=== PATIENT | male | born 1990 | race Caucasian/White ===

== ENCOUNTER 2017-02-05 13:51 | Emergency (ER) | payer SELFPAY ==
[~2017-02-05] VITALS: Ht 185.4 cm; Wt 97.7 kg
[2017-02-05 13:57] VITALS: Ht 185.4 cm; Wt 97.7 kg
--- NOTE | 2017-02-05 16:13 | RADRPT ---
PROCEDURE: XR Knee. CLINICAL INDICATION: Pain TECHNIQUE: AP, lateral and oblique view of the right knee were obtained. The images reviewed on a PACS workstation. COMPARISON: None. FINDINGS: Three views of the right knee demonstrate no displaced fracture. No gross malalignment is seen. Th ere is no significant degenerate change. No patellofemoral disease is identified. No knee joint effu shar is seen.. The bones normally mineralized. The soft tissues are unremarkable. IMPRESSION: No acute fracture dislocation RPTAT: HH .Beny Patricia MD, MD Date Time Electronically viewed and signed by .Beny Patricia MD, on 02/05/2017 16:13 .W/
--- NOTE | 2017-02-05 17:20 | RADRPT ---
PROCEDURE: XR Elbow. CLINICAL INDICATION: Post-traumatic swelling TECHNIQUE: Three views of the right elbow are available for review COMPARISON: None available FINDINGS: There is no acute osseous or articular abnormality. No evidence for fracture. The radiocapitellar and ulnohumeral articular surfaces are preserved. No evidence for joint effusion or soft tissue ca lcifications. There is marked soft tissue swelling over the olecranon, likely presenting olecranon bursitis. Enthesopathic changes seen at the Achilles insertion IMPRESSION: 1. No acute osseous abnormality. 2. Marked soft tissue swelling of the olecranon, query bursitis. RPTAT: UU .Rupert Hickman MD, Date Time Electronically viewed and signed by .Rupert Hickman MD, MD on 02/05/2017 17:20 .d/
[2017-02-05] MEDS ORDERED: NAPR-688 PO (18:27)
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
[2017-02-05 18:50] VITALS: BP 125/78; PULSE 70; RESP 17
== END 2017-02-05 18:50 | disposition home or self-care (01) ==
LOC: E/R 13:51
DX: S80.01XA Contusion of right knee, initial encounter (principal); S50.01XA Contusion of right elbow, initial encounter; X58.XXXA Exposure to other specified factors, initial encounter; Y92.512 Supermarket, store or market as the place of occurrence of the external cause
CPT/HCPCS: 73562

== ENCOUNTER 2017-02-18 10:45 | Emergency (ER) | payer SELFPAY ==
[~2017-02-18] VITALS: Ht 193 cm; Wt 110.0 kg
[~2017-02-18 10:45] MED LIST: NAPR-688 PO
[2017-02-18 10:53] VITALS: Ht 193 cm; Wt 110.0 kg
[2017-02-18] MEDS ORDERED: IBUPROFEN 800 MG TAB PO ONE (11:00)
[2017-02-18] MEDS ORDERED: HYDROCODONE/APAP (5/325) TAB PO ONE (11:00)
[2017-02-18] MEDS ORDERED: KETOROLAC 30 MG INJ IV STA (12:22)
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
[2017-02-18] MEDS ORDERED: IBUP800T25 PO (12:33)
[2017-02-18] MEDS ORDERED: HYDR-906 PO (12:33)
[2017-02-18 13:06] VITALS: BP 132/82; PULSE 78; RESP 18; TEMP 98.3
--- NOTE | 2017-02-18 15:31 | RADRPT ---
PROCEDURE: Right knee radiographs. CLINICAL INDICATION: Right knee pain. TECHNIQUE: Three views. Weight bearing. Frontal, lateral, and patellar view. COMPARISON: 02/05/2017. FINDINGS: There is no fracture or dislocation. There is a small joint effusion. The articular surfaces are intact. There is no lytic or blastic lesion. There is no radiopaque foreign body. IMPRESSION: 1. Small joint effusion. 2. Otherwise unremarkable images of the right knee. 3. No other change from 02/05/2017. RPTAT: QQ .Juna Lyles MD, MD Date Time Electronically viewed and signed by .Juan Lyles MD, MD on 02/18/2017 15:30 .R/
== END 2017-02-18 13:06 | disposition home or self-care (01) ==
LOC: E/R 10:45
DX: S83.91XA Sprain of unspecified site of right knee, initial encounter (principal); W18.39XA Other fall on same level, initial encounter; Y92.9 Unspecified place or not applicable
CPT/HCPCS: 73562; 96374; 99284; J1885

== ENCOUNTER 2017-03-25 16:51 | Emergency (ER) | payer SELFPAY ==
[~2017-03-25] VITALS: Ht 193 cm; Wt 116.0 kg
[~2017-03-25 16:51] MED LIST changes: +HYDR-906 PO; +IBUP800T25 PO
[2017-03-25 16:53] VITALS: Ht 193 cm; Wt 116.0 kg
[2017-03-25] MEDS ORDERED: HYDROCODONE/APAP (5/325) TAB PO ONE (18:30)
--- NOTE | 2017-03-25 19:39 | RADRPT ---
PROCEDURE: XR Tibia and Fibula. CLINICAL INDICATION: Right lower leg pain and swelling. Right upper anterior tibia pain. TECHNIQUE: 4 views of the right tibia and fibula are available for review. COMPARISON: None available FINDINGS: The right tibia and fibula are intact. No acute fracture or dislocation is seen. No radiopaque for eign body is identified. The soft tissues are unremarkable. The upper anterior tibia is intact. IMPRESSION: 1. Unremarkable right tibia and fibula x-ray series. RPTAT: PP .Oc Koehler MD, MD Date Time Electronically viewed and signed by .Oc Koehler MD, on 03/25/2017 19:39 .B/
--- NOTE | 2017-03-25 19:44 | RADRPT ---
PROCEDURE: XR Knee. CLINICAL INDICATION: Right knee pain. TECHNIQUE: 3 views of the right knee are available for review. COMPARISON: Right knee x-ray 02/18/2017 FINDINGS: The osseous structures, articular spaces, and surrounding soft tissues of the right knee are all unr emarkable. No acute fracture or dislocation is seen. No radiopaque foreign body is identified. Al ignment is anatomic. IMPRESSION: 1. Unremarkable right knee x-ray series. 2. No acute fracture or dislocation is seen. 3. Stable appearances compared to the prior study. RPTAT: PP .Oc Koehler MD, Date Time Electronically viewed and signed by .Oc Koehler MD, on 03/25/2017 19:43 .B/
[2017-03-25] MEDS ORDERED: IBUP-1542 PO (20:40)
--- NOTE | 2017-03-26 00:27 | ERD ---
ER Documentation Chief Complaint Chief Complaint RIGHT KNEE PAIN/INJURY HPI 46-year-old female patient with no significant past medical history presents to the ED complaining of right knee pain and injury that occurred earlier today at work at [employer]. 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 Reports that he has had chronic knee pain for the past year. Describes pain as sharp and rates it a 11 out of 10. It is that he took ibuprofen without relief. Denies any loss of sensation, loss of range of motion, fever, chills, redness or swelling. Denies fall, head or neck injuries. Denies any seizures or loss of consciousness. ROS All systems reviewed and are negative except as per history of present illness. Medications Home Meds Active Scripts Ibuprofen* (Motrin*) 600 Mg Tab, 600 MG PO Q6, #30 TAB Prov:SHAKA HIDALGO PA-C 03/25/17 Hydrocodone/Acetaminophen ([place] 5-325 Tablet) 1 Each Tablet, 1 TAB PO Q8 Y for PAIN, #10 TAB Prov:THOMAS PATEL DO 02/18/17 Ibuprofen* (Motrin*) 800 Mg Tab, 800 MG PO Q6H Y for PAIN AND OR ELEVATED TEMP, #30 TAB Prov:THOMAS PATEL DO 02/18/17 Naproxen* (Naproxen*) 500 Mg Tablet, 500 MG PO BID Y for PAIN, #20 TAB Prov:ROSHAN SANDRA DO 02/05/17 Allergies Allergies: Coded Allergies: No Known Allergy (Unverified , 02/05/17) PMhx/Soc Medical and Surgical Hx: pt denies Medical Hx, pt denies Surgical Hx Hx Alcohol Use: Yes Hx Substance Use: No Hx Tobacco Use: No Smoking Status: Never smoker Physical Exam Vitals Vital Signs Date Time Temp Pulse Resp B/P Pulse Ox O2 Delivery O2 Flow Rate FiO2 03/25/17 16:53 98.1 81 18 142/83 99 Physical Exam Const: [id number], well-nourished. In no acute distress. Head: Atraumatic, normocephalic Eyes: Normal Conjunctiva without injection ENT: Normal external ear, nose and mouth. Neck: Full range of motion. No meningismus. Resp: Clear to auscultation bilaterally. No wheezing, rhonchi, rales, or crackles. No accessory muscle use. No retractions. Cardio: Regular rate and rhythm, no murmurs Skin: No petechiae or rashes Back: No midline tenderness. No CVA tenderness. Ext: No cyanosis, or edema. Cap refill less than 2 seconds. Distal pulses intact bilaterally. Tender to palpation of the right patellar region. No erythema or edema. Limited range of motion due to pain. No warmth to touch. Neur: Awake and alert. Normal coordination. Limping gait due to pain. Muscle strength 5/5. Sensation intact bilaterally. Psych: Normal Mood and Affect Results 24 hrs Current Medications Medications (Trade) Dose Ordered Sig/Zak Route PRN Reason Start Time Stop Time Status Last Admin Dose Admin Acetaminophen/ Hydrocodone Bitart ([place] (5/325)) 1 tab ONCE ONCE PO 03/25/17 18:30 03/25/17 18:31 DC 03/25/17 18:37 Procedures/MDM 26-year-old male patient with no significant past medical history presents the ED complaining of right knee injury that occurred at work. Patient is afebrile nontoxic appearing. Patient has normal vital signs. A right knee, tib-fib x- ray was ordered to further evaluate patient. ROCEDURE: XR Knee. CLINICAL INDICATION: Right knee pain. TECHNIQUE: 3 views of the right knee are available for review. COMPARISON: Right knee x-ray 02/18/2017 FINDINGS: The osseous structures, articular spaces, and surrounding soft tissues of the right knee are all unremarkable. No acute fracture or dislocation is seen. No radiopaque foreign body is identified. Alignment is anatomic. IMPRESSION: 1. Unremarkable right knee x-ray series. 2. No acute fracture or dislocation is seen. 3. Stable appearances compared to the prior study. PROCEDURE: XR Tibia and Fibula. CLINICAL INDICATION: Right lower leg pain and swelling. Right upper anterior tibia pain. TECHNIQUE: 4 views of the right tibia and fibula are available for review. COMPARISON: None available FINDINGS: The right tibia and fibula are intact. No acute fracture or dislocation is seen. No radiopaque foreign body is identified. The soft tissues are unremarkable. The upper anterior tibia is intact. IMPRESSION: 1. Unremarkable right tibia and fibula x-ray series. Patient is placed in a right knee immobilizer. Crutches was ordered to further evaluate patient. Splint Assessment: Neurovascularly intact pre and post splint placement with good fit. Patient's extremity symptoms have stabilized while they have been evaluated in the department and are appropriate for outpatient follow up. No evidence of fractures, dislocations, compartment syndrome, neurologic injury, vascular injury, open joint, open fracture, tendon laceration, septic arthritis, osteomyelitis, DVT, foreign body, or other emergent conditions. Discharge medications: Ibuprofen Follow up with primary care physician in 1-2 days for a referral to see an orthopedic physician for further evaluation and treatment. Instructed patient to return to the ED sooner for any worsening symptoms. Patient's questions were answered. Patient understood and agreed with discharge plan. Patient discharged stable. Departure Diagnosis: Primary Impression: Knee injury Encounter type: initial encounter Laterality: right Qualified Code: S89.91XA - Injury of right knee, initial encounter Condition: Stable Patient Instructions: Reducing Knee Pain and Swelling, Knee Pain, Meniscus Injury (Possible), Knee Pain, Uncertain Cause Referrals: NO PRIMARY,CARE PHYSICIAN (PCP) COMMUNITY CLINICS YOU HAVE RECEIVED A MEDICAL SCREENING EXAM AND THE RESULTS INDICATE THAT YOU DO NOT HAVE A CONDITION THAT REQUIRES URGENT TREATMENT IN THE EMERGENCY DEPARTMENT. FURTHER EVALUATION AND TREATMENT OF YOUR CONDITION CAN WAIT UNTIL YOU ARE SEEN IN YOUR DOCTORS OFFICE WITHIN THE NEXT 1-2 DAYS. IT IS YOUR RESPONSIBILITY TO MAKE AN APPOINTMENT FOR FOLOW-UP CARE. IF YOU HAVE A PRIMARY DOCTOR --you should call your primary doctor and schedule an appointment IF YOU DO NOT HAVE A PRIMARY DOCTOR YOU CAN CALL OUR PHYSICIAN REFERRAL HOTLINE AT IF YOU CAN NOT AFFORD TO SEE A PHYSICIAN YOU CAN CHOSE FROM THE FOLLOWING [facility] [address] [facility] [address] [facility]. [facility] [address] [facility] [address] [facility] [address] [facility]. [facility]. [address] [facility]. [facility] YOU HAVE RECEIVED A MEDICAL SCREENING EXAM AND THE RESULTS INDICATE THAT YOU DO NOT HAVE A CONDITION THAT REQUIRES URGENT TREATMENT IN THE EMERGENCY DEPARTMENT. FURTHER EVALUATION AND TREATMENT OF YOUR CONDITION CAN WAIT UNTIL YOU ARE SEEN IN YOUR DOCTORS OFFICE WITHIN THE NEXT 1-2 DAYS. IT IS YOUR RESPONSIBILITY TO MAKE AN APPOINTMENT FOR FOLOW-UP CARE. IF YOU HAVE A PRIMARY DOCTOR --you should call your primary doctor and schedule and appointment IF YOU DO NOT HAVE A PRIMARY DOCTOR YOU CAN CALL OUR PHYSICIAN REFERRAL HOTLINE AT . IF YOU CAN NOT AFFORD TO SEE A PHYSICIAN YOU CAN CHOSE FROM THE FOLLOWING [facility]: [facility] [address] [place] [address] [facility] [address] [place] [address] [facility] + [facility] [address] [place] [address] [facility] Additional Instructions: FOLLOW UP WITH YOUR PRIMARY CARE PHYSICIAN TOMORROW for a referral to see an orthopedic physician. Return to this facility if you are not improving as expected - fever, weakness, numbness or tingling, decreased sensation, etc. SHAKA HIDALGO PA-C Mar 26, 2017 00:27
== END 2017-03-25 21:15 | disposition home or self-care (01) ==
LOC: FTE 16:51
DX: S89.91XA Unspecified injury of right lower leg, initial encounter (principal); X50.9XXA Other and unspecified overexertion or strenuous movements or postures, initial encounter; Y92.89 Other specified places as the place of occurrence of the external cause
CPT/HCPCS: 73562; 73590